=== PATIENT | female | born 1960 | race Caucasian/White ===

== ENCOUNTER 2020-11-17 08:00 | Day surgery (SDC) | payer BC ==
[~2020-11-17 08:00] MED LIST: Lactated Ringers 1,000 ML IV SCH; Sodium Chloride 0.9% 10 ML Syringe FLUSH PRN
[2020-11-17] MEDS ORDERED: Midazolam 1 MG/ML 2 ML SDV IV ONE (08:01)
[2020-11-17] MEDS ORDERED: Propofol 200 MG/20 ML SDV IV ONE (08:01)
--- NOTE | 2020-11-17 09:32 | PCM.HP.2 ---
H&P History of Present Illness - General Date of Service: 11/17/20 Admit Problem/Dx: Admission Diagnosis/Problem Admission Diagnosis/Problem Colonoscopy Source of Information: Patient, Old Records - History of Present Illness Initial Comments - Free Text/Narative: Here for colonoscopy - Related Data Allergies/Adverse Reactions: Allergies Allergy/AdvReac Type Severity Reaction Status Date / Time No Known Allergies Allergy Verified 11/17/20 08:16 Home Medications: Home Meds Aspirin 81 mg PO DAILY 11/16/20 [History] Losartan/Hydrochlorothiazide [Hyzaar 50-12.5 Tablet] 1 tab PO DAILY 11/16/20 [History] Melatonin 10 mg PO BEDTIME 11/16/20 [History] atorvaSTATin [Lipitor] 60 mg PO BEDTIME 11/16/20 [History] buPROPion HCL [Bupropion Xl] 150 mg PO DAILY 11/16/20 [History] Past Medical History HEENT History: Reports: Impaired Vision Cardiovascular History: Reports: High Cholesterol, Hypertension, Other (See Below) Other Cardiovascular History: OCCLUSION OF R CAROTID ARTERY Respiratory History: Reports: None Gastrointestinal History: Reports: None Genitourinary History: Reports: None FRUIT RANCHER History: Reports: None Musculoskeletal History: Reports: None Neurological History: Reports: CVA Psychiatric History: Reports: None Endocrine/Metabolic History: Reports: None Hematologic History: Reports: None Immunologic History: Reports: None Oncologic (Cancer) History: Reports: None Dermatologic History: Reports: None - Past Surgical History Head Surgeries/Procedures: Reports: None HEENT Surgical History: Reports: None Cardiovascular Surgical History: Reports: Other (See Below) Other Cardiovascular Surgeries/Procedures: IMPLANTED LOOP RECORDER Respiratory Surgical History: Reports: None GI Surgical History: Reports: None Endocrine Surgical History: Reports: None Neurological Surgical History: Reports: None Musculoskeletal Surgical History: Reports: None Oncologic Surgical History: Reports: None Dermatological Surgical History: Reports: None Social & Family History - Tobacco Use Tobacco Use Status *Q: Former Tobacco User Years of Tobacco use: 40 Packs/Tins Daily: 1 Used Tobacco, but Quit: Yes Month/Year Tobacco Last Used: 2018 Second Hand Smoke Exposure: No H&P Review of Systems - Review of Systems: Review Of Systems: Comprehensive ROS is negative, except as noted in HPI. Exam - Exam Exam: See Below - Vital Signs Vital Signs: Last Vital Signs Temp 98.4 F 11/17/20 08:05 Pulse 75 11/17/20 08:05 Resp 18 11/17/20 08:05 BP 138/83 11/17/20 08:05 Pulse Ox 96 11/17/20 08:05 Weight: 74.843 kg - Exam General: Alert, Oriented Lungs: Clear to Auscultation, Normal Respiratory Effort Cardiovascular: Regular Rate, Regular Rhythm GI/Abdominal Exam: Soft, Non-Tender Sepsis Event Note - Focused Exam Vital Signs: Vital Signs Temp Pulse Resp BP Pulse Ox 11/17/20 08:05 98.4 F 75 18 138/83 96 Problem List Initiated/Reviewed/Updated: Yes Orders Last 24hrs: Active Orders 24 hr Category Date Time Status Patient Status [ADT] Routine ADT 11/17/20 08:00 Active Patient to Empty Bladder [RC] ASDIRECTED Care 11/17/20 08:00 Active Verify Patient Consent Obtain [RC] ASDIRECTED Care 11/17/20 08:00 Active Nothing Per Oral Diet [DIET] Diet 11/17/20 Breakfast Ordered Lactated Ringers [Ringers, Lactated] 1,000 ml Med 11/17/20 08:00 Active IV ASDIRECTED Sodium Chloride 0.9% [Saline Flush] Med 11/17/20 08:00 Active 10 ml FLUSH ASDIRECTED PRN Peripheral IV Insertion Adult [OM.PC] Routine Oth 11/17/20 08:00 Ordered Resuscitation Status Routine Resus Stat 11/16/20 09:20 Ordered Medication Orders Lactated Ringer's (Ringers, Lactated) 1,000 mls @ 125 mls/hr IV ASDIRECTED PIPE Last Admin: 11/17/20 08:35 Dose: 125 mls/hr Documented by: [email or web address] Sodium Chloride (Sodium Chloride 0.9% 10 Ml Syringe) 10 ml FLUSH ASDIRECTED PRN PRN Reason: Keep Vein Open Assessment/Plan Comment:: Colon Screeing Ok to proceed, risks and complications reviewed,consent obtained
--- NOTE | 2020-11-17 09:56 | PCM.OPNOTE ---
- General Post-Op/Procedure Note Date of Surgery/Procedure: 11/17/20 Operative Procedure(s): Colonoscopy Findings: Normal Pre Op Diagnosis: Screening Post-Op Diagnosis: Same Anesthesia Technique: TEGAN Primary Surgeon: Lasha Fuentes Anesthesia Provider: Beronica Sapp Complications: None Condition: Good
--- NOTE | 2020-11-17 14:38 | OR ---
DATE OF OPERATION: 11/17/2020 SURGEON: Lasha Fuentes MD PREOPERATIVE DIAGNOSIS: Colon screening. POSTOPERATIVE DIAGNOSIS: Normal colonoscopy. PROCEDURE: Colonoscopy. ANESTHESIA: IV sedation. DESCRIPTION OF PROCEDURE: The patient was brought to the procedure room where she was placed on her left side and IV sedation administered. Digital rectal exam was performed was normal. Colonoscope was inserted and advanced to the level of the cecum with some difficulty getting through a tortuous colon. Once I was able to get through the sigmoid colon, the cecum was reached without difficulty and confirmed by identifying the appendiceal lumen and ileocecal valve. Prep was good and surfaces were well visualized. Upon withdrawing the scope, the ascending, transverse, and descending colon were normal in appearance. The sigmoid colon and rectum were normal. Retroflexion was normal. Air was removed and the scope withdrawn. The patient tolerated the procedure well and returned to Recovery in stable condition. Recommend routine colon screening again in 10 years. /[id number] MICHOACANO/TIERA
== END 2020-11-17 10:38 | disposition home or self-care (01) ==
LOC: FB.SDS 08:00
PROVIDERS: ATTEND Surgery
DX: Z12.11 Encounter for screening for malignant neoplasm of colon (principal); K63.89 Other specified diseases of intestine; E78.00 Pure hypercholesterolemia, unspecified; I10 Essential (primary) hypertension; Z79.82 Long term (current) use of aspirin; Z79.899 Other long term (current) drug therapy; Z87.891 Personal history of nicotine dependence
CPT/HCPCS: 00812-QZ; J2250; J2704; J7120